=== PATIENT | male | born 1955 | race Caucasian/White ===

== ENCOUNTER 2018-06-29 18:08 | Outpatient (REF) | payer OTHER, SELFPAY ==
[2018-06-29 22:40] LABS: Cholesterol 123 mg/dL (50-200); HDL Cholesterol 33 mg/dL (40-60); LDL CHOLESTEROL 49 mg/dL (<100); Triglyceride 379 mg/dL (30-150)
== END 2018-06-29 18:28 ==
LOC: NCHCN 18:08
PROVIDERS: PCP Nurse Practitioner Family; Visit Provider Nurse Practitioner Family
DX: E78.5 Hyperlipidemia, unspecified (principal); E11.3293 Type 2 diabetes mellitus with mild nonproliferative diabetic retinopathy without macular edema, bilateral
CPT/HCPCS: 80061; 83721

== ENCOUNTER 2018-11-10 16:06 | Outpatient (REF) | payer OTHER, SELFPAY ==
[2018-11-10 22:28] LABS: ALT 33 U/L (12-78); AST 24 U/L (15-37); Albumin 4.3 g/dL (3.4-5.0); Alkaline Phosphatase 109 U/L (46-116); Anion Gap 10.6 mmol/L (3-11); BUN 27 mg/dL (7-18); Bilirubin, Total 0.7 mg/dL (0.2-1.0); CO2 27.4 mmol/L (21.0-32.0); CREATININE 1.56 mg/dL (0.70-1.30); Calcium 9.5 mg/dL (8.5-10.1); Chloride 105 mmol/L (98-107); Estimated GFR 45.18 (mL/min/1.73m2); Glucose 120 mg/dL (70-100); Potassium 4.4 mmol/L (3.5-5.1); Sodium 143 mmol/L (136-145); Total Protein 8.4 g/dL (6.4-8.2)
[2018-11-12 10:26] LABS: Hepatitis C Ab w Rflx HCV PCR Negative (NEGAT)
== END 2018-11-10 16:26 ==
LOC: NCHCN 16:06
PROVIDERS: PCP Nurse Practitioner Family; Visit Provider Nurse Practitioner Family
DX: I10 Essential (primary) hypertension (principal); E78.5 Hyperlipidemia, unspecified; E11.3293 Type 2 diabetes mellitus with mild nonproliferative diabetic retinopathy without macular edema, bilateral; Z11.59 Encounter for screening for other viral diseases
CPT/HCPCS: 80053; 86803

== ENCOUNTER 2018-11-15 15:14 | Outpatient (REF) | payer OTHER, SELFPAY ==
[2018-11-15 22:08] LABS: ALT 40 U/L (12-78); AST 28 U/L (15-37); Albumin 3.9 g/dL (3.4-5.0); Alkaline Phosphatase 98 U/L (46-116); Anion Gap 10.7 mmol/L (3-11); BUN 26 mg/dL (7-18); Bilirubin, Total 0.5 mg/dL (0.2-1.0); CO2 25.3 mmol/L (21.0-32.0); CREATININE 1.32 mg/dL (0.70-1.30); Calcium 9.3 mg/dL (8.5-10.1); Chloride 107 mmol/L (98-107); Estimated GFR 54.78 (mL/min/1.73m2); Glucose 101 mg/dL (70-100); Potassium 3.9 mmol/L (3.5-5.1); Sodium 143 mmol/L (136-145); Total Protein 7.5 g/dL (6.4-8.2)
== END 2018-11-15 15:34 ==
LOC: NCHCN 15:14
PROVIDERS: PCP Nurse Practitioner Family; Visit Provider Nurse Practitioner Family
DX: I10 Essential (primary) hypertension (principal)
CPT/HCPCS: 80053

== ENCOUNTER 2019-02-15 14:00 | Outpatient (REF) | payer OTHER, SELFPAY ==
[2019-02-15 21:08] LABS: Anion Gap 11.2 mmol/L (3-11); BUN 27 mg/dL (7-18); CO2 25.8 mmol/L (21.0-32.0); CREATININE 1.12 mg/dL (0.70-1.30); Calcium 9.3 mg/dL (8.5-10.1); Chloride 103 mmol/L (98-107); Glucose 175 mg/dL (70-100); Potassium 4.4 mmol/L (3.5-5.1); Sodium 140 mmol/L (136-145)
== END 2019-02-15 14:20 ==
LOC: NCHCN 14:00
PROVIDERS: PCP Nurse Practitioner Family; Visit Provider Nurse Practitioner Family
DX: E11.3293 Type 2 diabetes mellitus with mild nonproliferative diabetic retinopathy without macular edema, bilateral (principal); R89.9 Unspecified abnormal finding in specimens from other organs, systems and tissues
CPT/HCPCS: 80048

== ENCOUNTER 2019-03-31 13:48 | Outpatient (REF) | payer OTHER, SELFPAY ==
[2019-03-31 22:13] LABS: Microalb ug/mg Crea 17.9 ug/mg Cr
== END 2019-03-31 14:08 ==
LOC: NCHCN 13:48
PROVIDERS: PCP Nurse Practitioner Family; Visit Provider Nurse Practitioner Family
DX: I10 Essential (primary) hypertension (principal); E11.3293 Type 2 diabetes mellitus with mild nonproliferative diabetic retinopathy without macular edema, bilateral
CPT/HCPCS: 82043; 82570

== ENCOUNTER 2019-10-11 21:45 | Outpatient (REF) | payer OTHER, SELFPAY ==
[2019-10-11 20:48] LABS: ALT 30 U/L (16-63); AST 17 U/L (15-37); Albumin 3.9 g/dL (3.4-5.0); Alkaline Phosphatase 89 U/L (46-116); Anion Gap 12.2 mmol/L (3-11); BUN 28 mg/dL (7-18); Bilirubin, Total 0.5 mg/dL (0.2-1.0); CO2 23.8 mmol/L (21.0-32.0); CREATININE 1.28 mg/dL (0.70-1.30); Calcium 9.1 mg/dL (8.5-10.1); Chloride 107 mmol/L (98-107); Cholesterol 119 mg/dL (<200); Estimated GFR 56.58 (mL/min/1.73m2); Glucose 145 mg/dL (74-106); HDL Cholesterol 23 mg/dL (40-60); Potassium 4.4 mmol/L (3.5-5.1); Sodium 143 mmol/L (136-145); Total Protein 7.2 g/dL (6.4-8.2); Triglyceride 503 mg/dL (<150)
[2019-10-11 22:19] LABS: LDL CHOLESTEROL 36 mg/dL (<100)
== END 2019-10-11 22:05 ==
LOC: NCHCN 21:45
PROVIDERS: PCP Nurse Practitioner Family; Visit Provider Nurse Practitioner Family
DX: E11.3293 Type 2 diabetes mellitus with mild nonproliferative diabetic retinopathy without macular edema, bilateral (principal); E78.5 Hyperlipidemia, unspecified; I10 Essential (primary) hypertension
CPT/HCPCS: 80053; 80061; 83721

== ENCOUNTER 2020-05-08 18:38 | Outpatient (REF) | payer OTHER, SELFPAY ==
[2020-05-08 21:57] LABS: COMMENT (LAB VIEW ONLY) 268.41 mg/dL; Microalb ug/mg Crea 11.4 ug/mg Cr
[2020-05-08 22:21] LABS: ALT 43 U/L (16-63); AST 23 U/L (15-37); Albumin 4.2 g/dL (3.4-5.0); Alkaline Phosphatase 90 U/L (46-116); Anion Gap 12.8 mmol/L (3-11); BUN 29 mg/dL (7-18); Bilirubin, Total 0.7 mg/dL (0.2-1.0); CO2 23.2 mmol/L (21.0-32.0); CREATININE 1.28 mg/dL (0.70-1.30); Calcium 9.9 mg/dL (8.5-10.1); Calculated LDL 44 mg/dL (<100); Chloride 107 mmol/L (98-107); Cholesterol 114 mg/dL (<200); Estimated GFR 56.58 (mL/min/1.73m2); Glucose 76 mg/dL (74-106); HDL Cholesterol 32 mg/dL (40-60); Potassium 4.6 mmol/L (3.5-5.1); Sodium 143 mmol/L (136-145); Total Protein 7.7 g/dL (6.4-8.2); Triglyceride 194 mg/dL (<150)
== END 2020-05-08 18:58 ==
LOC: NCHCN 18:38
PROVIDERS: PCP Nurse Practitioner Family; Visit Provider Nurse Practitioner Family
DX: E78.5 Hyperlipidemia, unspecified (principal); E11.3293 Type 2 diabetes mellitus with mild nonproliferative diabetic retinopathy without macular edema, bilateral
CPT/HCPCS: 80053; 80061; 82043; 82570

== ENCOUNTER 2020-12-27 21:45 | Outpatient (REF) | payer MEDICARE, SELFPAY ==
[2020-12-27 20:29] LABS: HGB 14.3 g/dL (13.5-17.5); MCH 31.2 pg (27.0-33.0); MCHC 34.9 % (32.0-36.0); MCV 89.5 fL (80-95); MPV 10.1 fL (8.0-11.0); Platelet Count 277 10^3/uL (130-400); RBC 4.58 10^6/uL (4.36-5.78); RDW 12.9 % (11.8-14.1); RDW-SD 41.9 fL; WBC 9.82 10^3/uL (4.4-10.8)
[2020-12-27 21:17] LABS: ALT 42 U/L (16-63); AST 24 U/L (15-37); Albumin 4.2 g/dL (3.4-5.0); Alkaline Phosphatase 104 U/L (46-116); Anion Gap 11.5 mmol/L (3-11); BUN 27 mg/dL (7-18); Bilirubin, Total 0.5 mg/dL (0.2-1.0); CO2 25.5 mmol/L (21.0-32.0); CREATININE 1.5 mg/dL (0.70-1.30); Calcium 9.4 mg/dL (8.5-10.1); Chloride 107 mmol/L (98-107); Estimated GFR 46.97 (mL/min/1.73m2); Glucose 147 mg/dL (74-106); Potassium 4.6 mmol/L (3.5-5.1); Sodium 144 mmol/L (136-145); TSH (W/Ref FT4) 3.63 uIU/mL (0.36-3.74); Total Protein 7.8 g/dL (6.4-8.2); Vitamin B12 416 pg/mL (193-986)
== END 2020-12-27 21:46 | disposition home or self-care (01) ==
LOC: NCHCN 21:45
PROVIDERS: PCP Nurse Practitioner Family; Visit Provider Nurse Practitioner Family
DX: G62.9 Polyneuropathy, unspecified (principal); E11.3293 Type 2 diabetes mellitus with mild nonproliferative diabetic retinopathy without macular edema, bilateral
CPT/HCPCS: 80053; 85027; 82607; 84443

== ENCOUNTER 2021-01-03 19:53 | Outpatient (REF) | payer MEDICARE, SELFPAY ==
[2021-01-03 19:51] LABS: CREATININE 1.5 mg/dL (0.70-1.30); Estimated GFR 46.97 (mL/min/1.73m2)
== END 2021-01-03 19:54 | disposition home or self-care (01) ==
LOC: NCHCN 19:53
PROVIDERS: PCP Nurse Practitioner Family; Visit Provider Nurse Practitioner Family
DX: E11.3293 Type 2 diabetes mellitus with mild nonproliferative diabetic retinopathy without macular edema, bilateral (principal); G62.9 Polyneuropathy, unspecified
CPT/HCPCS: 82565

== ENCOUNTER 2021-03-28 14:40 | Outpatient (REF) | payer MEDICARE, SELFPAY ==
[2021-03-28 21:01] LABS: COMMENT (LAB VIEW ONLY) 238.47 mg/dL; Microalb ug/mg Crea 8.4 ug/mg Cr
[2021-03-28 21:04] LABS: ALT 43 U/L (16-63); AST 22 U/L (15-37); Albumin 4.1 g/dL (3.4-5.0); Alkaline Phosphatase 88 U/L (46-116); Anion Gap 15.6 mmol/L (3-11); BUN 35 mg/dL (7-18); Bilirubin, Total 0.5 mg/dL (0.2-1.0); CO2 21.4 mmol/L (21.0-32.0); CREATININE 1.4 mg/dL (0.70-1.30); Calcium 9.5 mg/dL (8.5-10.1); Chloride 104 mmol/L (98-107); Cholesterol 154 mg/dL (<200); Estimated GFR 50.86 (mL/min/1.73m2); Glucose 157 mg/dL (74-106); HDL Cholesterol 31 mg/dL (40-60); Sodium 141 mmol/L (136-145); Total Protein 7.6 g/dL (6.4-8.2); Triglyceride 593 mg/dL (<150)
[2021-03-28 21:25] LABS: LDL CHOLESTEROL 41 mg/dL (<100)
== END 2021-03-28 14:41 | disposition home or self-care (01) ==
LOC: NCHCN 14:40
PROVIDERS: PCP Nurse Practitioner Family; Visit Provider Nurse Practitioner Family
DX: E11.3293 Type 2 diabetes mellitus with mild nonproliferative diabetic retinopathy without macular edema, bilateral (principal); I10 Essential (primary) hypertension; E78.5 Hyperlipidemia, unspecified
CPT/HCPCS: 80053; 80061; 83721; 82043; 82570

== ENCOUNTER 2021-05-09 20:02 | Outpatient (REF) | payer MEDICARE, SELFPAY ==
[2021-05-10 16:45] LABS: PSA, Screening 1.7 ng/mL (0.0-4.5)
== END 2021-05-09 20:03 | disposition home or self-care (01) ==
LOC: NCHCN 20:02
PROVIDERS: PCP Nurse Practitioner Family; Visit Provider Nurse Practitioner Family
DX: Z12.5 Encounter for screening for malignant neoplasm of prostate (principal)
CPT/HCPCS: 84153

== ENCOUNTER 2021-09-30 16:31 | Outpatient (REF) | payer MEDICARE, SELFPAY ==
[2021-09-30 14:54] LABS: HCT 43.4 % (40.0-50.0); HGB 14.5 g/dL (13.5-17.5); MCH 30.8 pg (27.0-33.0); MCHC 33.4 % (32.0-36.0); MCV 92.1 fL (80-95); MPV 10.1 fL (8.0-11.0); Platelet Count 260 10^3/uL (130-400); RBC 4.71 10^6/uL (4.36-5.78); RDW 12.9 % (11.8-14.1); RDW-SD 43.4 fL; WBC 10.59 10^3/uL (4.4-10.8)
[2021-09-30 15:24] LABS: ALT 52 U/L (16-63); AST 24 U/L (15-37); Albumin 4.2 g/dL (3.4-5.0); Alkaline Phosphatase 102 U/L (46-116); Anion Gap 9.3 mmol/L (3-11); BUN 32 mg/dL (7-18); Bilirubin, Total 0.4 mg/dL (0.2-1.0); CO2 24.7 mmol/L (21.0-32.0); CREATININE 1.5 mg/dL (0.70-1.30); Calcium 9.4 mg/dL (8.5-10.1); Chloride 108 mmol/L (98-107); Estimated GFR 46.97 (mL/min/1.73m2); Glucose 180 mg/dL (74-106); Sodium 142 mmol/L (136-145); TSH (W/Ref FT4) 5.33 uIU/mL (0.36-3.74); Total Protein 7.9 g/dL (6.4-8.2)
[2021-09-30 16:58] LABS: FREE T4 1.01 ng/dL (0.76-1.46)
== END 2021-09-30 16:32 | disposition home or self-care (01) ==
LOC: NCHCN 16:31
PROVIDERS: PCP Nurse Practitioner Family; Visit Provider Nurse Practitioner Family
DX: F32.9 Major depressive disorder, single episode, unspecified (principal)
CPT/HCPCS: 80053; 85027; 84439; 84443

== ENCOUNTER 2021-10-21 14:30 | Outpatient (REF) | payer MEDICARE, SELFPAY ==
[2021-10-21 21:08] LABS: TSH (W/Ref FT4) 3.72 uIU/mL (0.36-3.74)
[2021-10-22 18:48] LABS: Anion Gap 12.9 mmol/L (3-11); BUN 22 mg/dL (7-18); CO2 23.1 mmol/L (21.0-32.0); CREATININE 1.3 mg/dL (0.70-1.30); Calcium 8.9 mg/dL (8.5-10.1); Chloride 105 mmol/L (98-107); Estimated GFR 55.23 (mL/min/1.73m2); Glucose 93 mg/dL (74-106); Potassium 4.3 mmol/L (3.5-5.1); Sodium 141 mmol/L (136-145)
== END 2021-10-21 14:31 | disposition home or self-care (01) ==
LOC: NCHCN 14:30
PROVIDERS: PCP Nurse Practitioner Family; Visit Provider Nurse Practitioner Family
DX: R94.6 Abnormal results of thyroid function studies (principal); I10 Essential (primary) hypertension; E11.3293 Type 2 diabetes mellitus with mild nonproliferative diabetic retinopathy without macular edema, bilateral
CPT/HCPCS: 80048; 84443

== ENCOUNTER 2022-01-03 19:34 | Outpatient (REF) | payer MEDICARE, OTHER, SELFPAY ==
[2022-01-03 21:04] LABS: Hemoglobin A1C 6.5 % (<5.7)
[2022-01-03 21:08] LABS: ALT 31 U/L (16-63); AST 20 U/L (15-37); Albumin 4.2 g/dL (3.4-5.0); Alkaline Phosphatase 97 U/L (46-116); Bilirubin, Direct 0.1 mg/dL (0.0-0.2); Bilirubin, Total 0.4 mg/dL (0.2-1.0); Total Protein 7.6 g/dL (6.4-8.2)
== END 2022-01-03 19:35 | disposition home or self-care (01) ==
LOC: NCHCN 19:34
PROVIDERS: PCP Nurse Practitioner Family; Visit Provider Registered Nurse
DX: E11.3293 Type 2 diabetes mellitus with mild nonproliferative diabetic retinopathy without macular edema, bilateral (principal); B35.1 Tinea unguium; Z79.899 Other long term (current) drug therapy
CPT/HCPCS: 80076; 83036

== ENCOUNTER 2022-05-12 21:10 | Outpatient (REF) | payer MEDICARE, OTHER, SELFPAY ==
[2022-05-12 22:03] LABS: ALT 33 U/L (16-63); AST 21 U/L (15-37); Albumin 4.3 g/dL (3.4-5.0); Alkaline Phosphatase 101 U/L (46-116); Anion Gap 12.2 mmol/L (3-11); BUN 30 mg/dL (7-18); Bilirubin, Total 0.6 mg/dL (0.2-1.0); CO2 24.8 mmol/L (21.0-32.0); CREATININE 1.6 mg/dL (0.70-1.30); Calcium 9.3 mg/dL (8.5-10.1); Calculated LDL 28 mg/dL (<100); Chloride 106 mmol/L (98-107); Cholesterol 127 mg/dL (<200); Estimated GFR 43.46 (mL/min/1.73m2); Glucose 111 mg/dL (74-106); HDL Cholesterol 36 mg/dL (40-60); Potassium 4.9 mmol/L (3.5-5.1); Sodium 143 mmol/L (136-145); Total Protein 8.2 g/dL (6.4-8.2); Triglyceride 318 mg/dL (<150)
[2022-05-13 17:57] LABS: Albumin ug/mg Crea 41 (<30); Albumin, Ur 28.2 mg/dL (See Note); Creatinine, Ur 686.8 mg/dL (See Note)
== END 2022-05-12 21:11 | disposition home or self-care (01) ==
LOC: NCHCN 21:10
PROVIDERS: PCP Nurse Practitioner Family; Visit Provider Nurse Practitioner Family
DX: E78.5 Hyperlipidemia, unspecified (principal)
CPT/HCPCS: 80053; 80061; 82043; 82570

== ENCOUNTER 2022-08-11 14:39 | Outpatient (REF) | payer MEDICARE, OTHER, SELFPAY ==
[2022-08-11 21:38] LABS: HCT 45.1 % (40.0-50.0); HGB 15.3 g/dL (13.5-17.5); MCHC 33.9 % (32.0-36.0); MCV 91 fL (80-95); MPV 10.2 fL (8.0-11.0); Platelet Count 261 10^3/uL (130-400); RBC 4.94 10^6/uL (4.36-5.78); RDW 13.2 % (11.8-14.1); RDW-SD 44.3 fL; WBC 10.02 10^3/uL (4.4-10.8)
[2022-08-11 22:13] LABS: COMMENT (LAB VIEW ONLY) 146.39 mg/dL; PROTEIN 12.6 mg/dL; Prot/Crea Ur Ratio 0.08
[2022-08-11 22:35] LABS: Albumin 4.4 g/dL (3.4-5.0); Anion Gap 10.9 mmol/L (3-11); BUN 29 mg/dL (7-18); CO2 24.1 mmol/L (21.0-32.0); CREATININE 1.7 mg/dL (0.70-1.30); Calcium 9.8 mg/dL (8.5-10.1); Chloride 103 mmol/L (98-107); Estimated GFR 43.91 (mL/min/1.73m2); Glucose 185 mg/dL (74-106); PHOSPHORUS 4.3 mg/dL (2.6-4.7); Sodium 138 mmol/L (136-145)
[2022-08-13 10:45] LABS: Parathyroid Hormone,Intact 21 pg/mL (19-88)
[2022-08-13 13:13] LABS: Albumin 55.4 % (55.8-66.1); Albumin g/dL 4.3 g/dL (3.6-5.2); Total Protein 7.7 g/dL (6.3-8.2)
== END 2022-08-11 14:40 | disposition home or self-care (01) ==
LOC: LBN 14:39
PROVIDERS: PCP Nurse Practitioner Family
DX: E11.21 Type 2 diabetes mellitus with diabetic nephropathy (principal); I10 Essential (primary) hypertension; N17.9 Acute kidney failure, unspecified; N18.32 Chronic kidney disease, stage 3b
CPT/HCPCS: 80069; 85027; 82565; 83970; 84156; 84165

== ENCOUNTER 2023-01-06 22:34 | Outpatient (REF) | payer MEDICARE, OTHER, SELFPAY ==
[2023-01-06 22:06] LABS: HCT 50.9 % (40.0-50.0); HGB 16.9 g/dL (13.5-17.5); MCH 30.6 pg (27.0-33.0); MCHC 33.2 % (32.0-36.0); MCV 92 fL (80-95); MPV 10.2 fL (8.0-11.0); Platelet Count 232 10^3/uL (130-400); RBC 5.52 10^6/uL (4.36-5.78); RDW 13.8 % (11.8-14.1); RDW-SD 47.2 fL; WBC 8.78 10^3/uL (4.4-10.8)
[2023-01-06 22:14] LABS: ALT 35 U/L (16-63); AST 28 U/L (15-37); Albumin 4.2 g/dL (3.4-5.0); Alkaline Phosphatase 112 U/L (46-116); Anion Gap 6.9 mmol/L (3-11); BUN 42 mg/dL (7-18); Bilirubin, Total 0.9 mg/dL (0.2-1.0); CO2 26.1 mmol/L (21.0-32.0); CREATININE 1.5 mg/dL (0.70-1.30); Calcium 9.6 mg/dL (8.5-10.1); Chloride 105 mmol/L (98-107); Estimated GFR 50.71 (mL/min/1.73m2); Glucose 132 mg/dL (74-106); Potassium 4.8 mmol/L (3.5-5.1); Sodium 138 mmol/L (136-145); Total Protein 8.4 g/dL (6.4-8.2)
[2023-01-06 22:30] LABS: Hemoglobin A1C 7.3 % (<5.7)
== END 2023-01-06 22:35 | disposition home or self-care (01) ==
LOC: NCHCN 22:34
PROVIDERS: PCP Nurse Practitioner Family; Visit Provider Family Medicine
DX: E11.3293 Type 2 diabetes mellitus with mild nonproliferative diabetic retinopathy without macular edema, bilateral (principal); N17.9 Acute kidney failure, unspecified; Z01.818 Encounter for other preprocedural examination; R82.998 Other abnormal findings in urine
CPT/HCPCS: 80053; 85027; 83036; 87086

== ENCOUNTER 2023-04-08 12:02 | Outpatient (REF) | payer MEDICARE, OTHER, SELFPAY ==
[2023-04-08 15:20] LABS: Abs Immature Grans 0.04 10^3/uL (0.0-0.06); Absolute Basophil Count 0.03 10^3/uL (0.0-0.2); Absolute Eosinophil Count 0.28 10^3/uL (0.0-0.7); Absolute Lymphocyte Count 1.53 10^3/uL (1.2-3.4); Absolute Monocyte Count 0.69 10^3/uL (0.1-0.8); Absolute Neutrophil Count 5.98 10^3/uL (1.2-6.7); Basophils % 0.4; Eosinophils % 3.3; HCT 49.3 % (40.0-50.0); HGB 16.1 g/dL (13.5-17.5); Immature Grans % 0.5; Lymphocytes % 17.9; MCH 30.7 pg (27.0-33.0); MCHC 32.7 % (32.0-36.0); MCV 94 fL (80-95); MPV 10.3 fL (8.0-11.0); Monocytes % 8.1; Neutrophils % 69.8; Platelet Count 255 10^3/uL (130-400); RBC 5.25 10^6/uL (4.36-5.78); RDW 13.6 % (11.8-14.1); RDW-SD 46.8 fL; WBC 8.55 10^3/uL (4.4-10.8)
[2023-04-08 15:51] LABS: ALT 22 U/L (16-63); AST 19 U/L (15-37); Albumin 4.2 g/dL (3.4-5.0); Alkaline Phosphatase 115 U/L (46-116); Anion Gap 9.2 mmol/L (3-11); BUN 65 mg/dL (7-18); Bilirubin, Total 0.4 mg/dL (0.2-1.0); CO2 19.8 mmol/L (21.0-32.0); CREATININE 2.1 mg/dL (0.70-1.30); Calcium 9.7 mg/dL (8.5-10.1); Chloride 109 mmol/L (98-107); Estimated GFR 33.87 (mL/min/1.73m2); Glucose 146 mg/dL (74-106); Sodium 138 mmol/L (136-145); Total Protein 8.4 g/dL (6.4-8.2)
[2023-04-08 16:02] LABS: Potassium 7.2 mmol/L (3.5-5.1)
== END 2023-04-08 12:03 | disposition home or self-care (01) ==
LOC: NCHCN 12:02
PROVIDERS: PCP Nurse Practitioner Family; Visit Provider Registered Nurse
DX: R19.7 Diarrhea, unspecified (principal); R10.9 Unspecified abdominal pain
CPT/HCPCS: 80053; 85025

== ENCOUNTER 2023-04-14 19:17 | Outpatient (REF) | payer MEDICARE, OTHER, SELFPAY ==
[2023-04-14 22:20] LABS: ALT 30 U/L (16-63); AST 23 U/L (15-37); Albumin 3.9 g/dL (3.4-5.0); Alkaline Phosphatase 91 U/L (46-116); Anion Gap 7.9 mmol/L (3-11); BUN 27 mg/dL (7-18); Bilirubin, Total 0.4 mg/dL (0.2-1.0); CO2 23.1 mmol/L (21.0-32.0); CREATININE 1.5 mg/dL (0.70-1.30); Calcium 9.3 mg/dL (8.5-10.1); Chloride 109 mmol/L (98-107); Estimated GFR 50.71 (mL/min/1.73m2); Glucose 106 mg/dL (74-106); Lipase 133 U/L (16-77); Potassium 5.8 mmol/L (3.5-5.1); Sodium 140 mmol/L (136-145); Total Protein 7.7 g/dL (6.4-8.2)
== END 2023-04-14 19:18 | disposition home or self-care (01) ==
LOC: NCHCN 19:17
PROVIDERS: PCP Nurse Practitioner Family; Visit Provider Family Medicine
DX: E87.5 Hyperkalemia (principal); R10.9 Unspecified abdominal pain
CPT/HCPCS: 80053; 83690

== ENCOUNTER 2023-04-28 20:27 | Outpatient (REF) | payer MEDICARE, OTHER, SELFPAY ==
[2023-04-28 21:27] LABS: BUN 18 mg/dL (7-18); CREATININE 1.3 mg/dL (0.70-1.30); Calcium 8.7 mg/dL (8.5-10.1); Chloride 108 mmol/L (98-107); Estimated GFR 60.21 (mL/min/1.73m2); Glucose 145 mg/dL (74-106); Potassium 4.3 mmol/L (3.5-5.1); Sodium 140 mmol/L (136-145)
== END 2023-04-28 20:28 | disposition home or self-care (01) ==
LOC: NCHCN 20:27
PROVIDERS: PCP Nurse Practitioner Family; Visit Provider Family Medicine
DX: I10 Essential (primary) hypertension (principal); E11.3293 Type 2 diabetes mellitus with mild nonproliferative diabetic retinopathy without macular edema, bilateral
CPT/HCPCS: 80048

== ENCOUNTER 2023-06-30 18:24 | Outpatient (REF) | payer MEDICARE, OTHER, SELFPAY ==
[2023-06-30 21:07] LABS: BUN 32 mg/dL (7-18); CREATININE 1.4 mg/dL (0.70-1.30); Calcium 9.4 mg/dL (8.5-10.1); Chloride 107 mmol/L (98-107); Estimated GFR 55.09 (mL/min/1.73m2); Glucose 164 mg/dL (74-106); Sodium 139 mmol/L (136-145)
[2023-06-30 21:20] LABS: Hemoglobin A1C 7.6 % (<5.7)
== END 2023-06-30 18:25 | disposition home or self-care (01) ==
LOC: NCHCN 18:24
PROVIDERS: PCP Nurse Practitioner Family; Visit Provider Family Medicine
DX: E11.3293 Type 2 diabetes mellitus with mild nonproliferative diabetic retinopathy without macular edema, bilateral (principal); I10 Essential (primary) hypertension
CPT/HCPCS: 80048; 83036

== ENCOUNTER 2023-09-10 16:31 | Outpatient (REF) | payer MEDICARE, OTHER, SELFPAY ==
[2023-09-10 21:08] LABS: COMMENT (LAB VIEW ONLY) 125.22 mg/dL; Microalb ug/mg Crea 3.7 ug/mg Cr
== END 2023-09-10 16:32 | disposition home or self-care (01) ==
LOC: NCHCN 16:31
PROVIDERS: PCP Nurse Practitioner Family; Visit Provider Family Medicine
DX: E11.21 Type 2 diabetes mellitus with diabetic nephropathy (principal)
CPT/HCPCS: 82043; 82570

== ENCOUNTER 2025-03-16 14:44 | Outpatient (REF) | payer MEDICARE, OTHER, SELFPAY ==
[2025-03-16 21:06] LABS: Anion Gap 9.8 mmol/L (3-11); BUN 37 mg/dL (7-18); CO2 22.2 mmol/L (21.0-32.0); CREATININE 1.5 mg/dL (0.70-1.30); Chloride 106 mmol/L (98-107); Estimated GFR 50.08 (mL/min/1.73m2); Glucose 164 mg/dL (74-106); Potassium 5.4 mmol/L (3.5-5.1); Sodium 138 mmol/L (136-145)
[2025-03-16 21:29] LABS: Hemoglobin A1C 7.3 % (<5.7)
== END 2025-03-16 14:45 | disposition home or self-care (01) ==
LOC: NCHCN 14:44
PROVIDERS: PCP Nurse Practitioner Family; Visit Provider Family Medicine
DX: E11.21 Type 2 diabetes mellitus with diabetic nephropathy (principal); I10 Essential (primary) hypertension
CPT/HCPCS: 80048; 83036

== ENCOUNTER 2025-04-13 15:59 | Outpatient (REF) | payer MEDICARE, OTHER, SELFPAY ==
[2025-04-13 21:14] LABS: Anion Gap 10.4 mmol/L (3-11); BUN 26 mg/dL (7-18); CO2 23.6 mmol/L (21.0-32.0); Calcium 8.8 mg/dL (8.5-10.1); Chloride 104 mmol/L (98-107); Estimated GFR 54.41 (mL/min/1.73m2); Glucose 168 mg/dL (74-106); Potassium 4.8 mmol/L (3.5-5.1); Sodium 138 mmol/L (136-145)
== END 2025-04-13 16:00 | disposition home or self-care (01) ==
LOC: NCHCN 15:59
PROVIDERS: PCP Nurse Practitioner Family; Visit Provider Family Medicine
DX: N18.30 Chronic kidney disease, stage 3 unspecified (principal)
CPT/HCPCS: 80048

== ENCOUNTER 2025-08-23 11:31 | Outpatient (REF) | payer MEDICARE, OTHER, SELFPAY ==
[2025-08-23 15:44] LABS: Hemoglobin A1C 7.5 % (<5.7)
[2025-08-23 15:48] LABS: ALT 27 U/L (10-49); AST 28 U/L (<34); Albumin 4.6 g/dL (3.2-5.0); Alkaline Phosphatase 108 U/L (46-116); Anion Gap 8.8 mmol/L (3-11); BUN 40 mg/dL (9-23); Bilirubin, Total 1.00 mg/dL (0.2-1.2); CO2 24.2 mmol/L (20.0-31.0); Calcium 9.4 mg/dL (8.3-10.6); Chloride 105 mmol/L (98-107); Cholesterol 131 mg/dL (<200); Glucose 126 mg/dL (74-106); HDL Cholesterol 32 mg/dL (>40); Potassium 5.2 mmol/L (3.5-5.1); Sodium 138 mmol/L (136-145); Total Protein 7.8 g/dL (5.7-8.2)
[2025-08-23 23:14] LABS: PSA, Screening 2.6 ng/mL (<=4.5)
== END 2025-08-23 11:32 | disposition home or self-care (01) ==
LOC: NCHCN 11:31
PROVIDERS: PCP Nurse Practitioner Family; Visit Provider Family Medicine
DX: N18.30 Chronic kidney disease, stage 3 unspecified (principal); E11.21 Type 2 diabetes mellitus with diabetic nephropathy; Z12.5 Encounter for screening for malignant neoplasm of prostate; Z13.220 Encounter for screening for lipoid disorders
CPT/HCPCS: 80053; 80061; 84153; 83036